=== PATIENT | female | born 1970 | race American Indian/Alaskan Native ===

== ENCOUNTER 2018-06-08 07:11 | Emergency (ER) | payer OTHER ==
[2018-06-08 07:17] VITALS: BMI 27.3
[2018-06-08 07:29] VITALS: TEMP 98.2; O2SAT 98
--- NOTE | 2018-06-08 07:51 | ED PDOC ---
Arrival/HPI - General Chief Complaint: Back Pain Time Seen by Provider: 06/08/18 07:14 Historian: Patient - History of Present Illness Narrative History of Present Illness (Text): 06/08/18 07:46 47F w/ h/o HTN and anxiety presenting with chest pain that began last night. The patient describes the chest pain as starting underneath the left breast, radiating to the mid back. She reports resolution of the pain last night, only for the pain to return this morning with associated dizziness, nausea and lightheadedness. She also reports associated lower abdominal pain she attributes to constipation. The patient denies syncopal episodes, nausea, fevers, chills, taking medications to relieve the pain, shortness of breath, weakness, leg swelling, numbness & tingling or recent travel out of the country. She reports her last menstrual period 1 week ago. PMD: Dr. Armin Rios Time/Duration: Prior to Arrival Symptom Course: Intermittent Quality: Aching Severity Level: 7 Activities at Onset: Rest Context: Home Past Medical History - Provider Review Nursing Documentation Reviewed: Yes - Travel History Have you recently traveled outside [place] w/in the past 3 mons?: No - Cardiac Hx Hypertension: Yes - Musculoskeletal/Rheumatological Hx Falls: No - Genitourinary/Gynecological Other/Comment: miscarriage - Psychiatric Hx Anxiety: Yes Hx Panic Disorder: Yes Hx Substance Use: No - Surgical History Other/Comment: R breast lumpectomy, d&c - Anesthesia Hx Anesthesia: Yes Family/Social History - Physician Review Nursing Documentation Reviewed: Yes Family/Social History: No Known Family HX Smoking Status: Never Smoked Hx Alcohol Use: No Hx Substance Use: No Allergies/Home Meds Allergies/Adverse Reactions: Allergies No Known Allergies Allergy (Verified 06/08/18 07:17) Home Medications: Home Meds Medication Instructions Recorded Confirmed Lisinopril/Hydrochlorothiazide 1 tab PO DAILY 06/08/18 06/08/18 [Lisinopril-Hctz 10-12.5 mg Tab] Sertraline HCl [Zoloft] 50 mg PO DAILY 06/08/18 06/08/18 Review of Systems - Review of Systems Constitutional: absent: Fatigue, Weight Change, Fevers, Night Sweats Respiratory: absent: SOB, Cough, Wheezing Cardiovascular: Chest Pain. absent: Palpitations, Edema, Calf Pain Gastrointestinal: Abdominal Pain, Constipation, Nausea. absent: Stool Changes, Diarrhea, Vomiting Genitourinary Female: absent: Dysuria, Frequency, Hematuria Musculoskeletal: Back Pain. absent: Neck Pain, Joint Swelling Skin: absent: Rash Neurological: Dizziness. absent: Headache Psychiatric: Anxiety Physical Exam Vital Signs Temp Pulse Resp BP Pulse Ox 06/08/18 12:10 98 06/08/18 11:53 71 18 122/78 98 06/08/18 10:56 75 18 116/74 98 06/08/18 09:11 78 18 118/78 98 06/08/18 07:28 98.2 F 82 16 121/81 98 Temperature: Afebrile Blood Pressure: Normal Pulse: Regular Respiratory Rate: Normal Appearance: Positive for: Well-Appearing, Non-Toxic, Comfortable Pain Distress: Moderate Mental Status: Positive for: Alert and Oriented X 3 - Systems Exam Head: Present: Atraumatic, Normocephalic Pupils: Present: PERRL Extroacular Muscles: Present: EOMI Mouth: Present: Moist Mucous Membranes Neck: Present: Normal Range of Motion. No: Meningeal Signs Respiratory/Chest: Present: Clear to Auscultation, Good Air Exchange. No: Respiratory Distress, Wheezes, Retracting Cardiovascular: Present: Regular Rate and Rhythm, Normal S1, S2 Abdomen: Present: Normal Bowel Sounds. No: Tenderness, Distention, Peritoneal Signs Back: Present: Normal Inspection. No: CVA Tenderness, Midline Tenderness Lower Extremity: Present: Normal Inspection. No: Edema, CALF TENDERNESS, NORMAL PULSES Neurological: Present: GCS=15, CN II-XII Intact, Speech Normal Skin: Present: Warm, Dry, Normal Color Psychiatric: Present: Alert, Oriented x 3, Normal Insight, Normal Concentration Medical Decision Making ED Course and Treatment: 06/08/18 07:54 Impression 47F w/ h/o HTN presenting with chest and back pain Differential Diagnoses Include But is Not Limited To: ACS PE Costochondritis PNA Plan -- EKG -- Chest X-ray -- Labs -- Keflex -- Valium -- Toradol -- Urine Culture -- Urinalysis -- POC Urine Progress Notes 06/08/2018 11:55 Chest X-ray IMPRESSION: No active pulmonary disease. Dictator: Hilda Ferrari MD EKG: Ordered, reviewed, and independently interpreted the EKG. Rate : 72 BPM Rhythm : NSR Interpretation : No T-wave abnormalities, no QT wave prolongation. Comparison : No previous EKG for comparison. - Lab Interpretations Lab Results: 06/08/18 06:45 06/08/18 06:45 Lab Results 06/08/18 10:52: Urine Color Yellow, Urine Appearance Clear, Urine pH 8.5, Ur Specific Speer 1.010, Urine Protein Trace H, Urine Glucose (UA) Negative, Urine Ketones Negative, Urine Blood Negative, Urine Nitrate Negative, Urine Bilirubin Negative, Urine Urobilinogen 0.2, Ur Leukocyte Esterase Large H, Urine RBC Negative, Urine WBC 5 - 10, Ur Epithelial Cells 3 - 4, Urine Bacteria Many 06/08/18 06:45: Sodium 140, Potassium 3.7, Chloride 102, Carbon Dioxide 29, Anion Gap 12, BUN 12, Creatinine 0.6 L, Est GFR ( Amer) > 60, Est GFR ( Non-Af Amer) > 60, Random Glucose 108, Calcium 9.6, Magnesium 2.0, Total Bilirubin 0.7, AST 38 H, ALT 27, Alkaline Phosphatase 55, Lactate Dehydrogenase 538, Total Creatine Kinase 163, Troponin I < 0.01, NT-Pro-B Natriuret Pep 48.8, Total Protein 7.8, Albumin 4.2, Globulin 3.6, Albumin/Globulin Ratio 1.2 06/08/18 06:45: D-Dimer, Quantitative 236 06/08/18 06:45: WBC 6.5 D, RBC 4.20, Hgb 11.5 L, Hct 34.4 L, MCV 81.9, MCH 27.4 , MCHC 33.4, RDW 13.2, Plt Count 324, MPV 9.2, Gran % 65.9, Lymph % (Auto) 27.6 , [place] % (Auto) 5.2, Eos % (Auto) 1.1 L, Baso % (Auto) 0.2, Gran # 4.29, Lymph # (Auto) 1.8, [place] # (Auto) 0.3, Eos # (Auto) 0.1, Baso # (Auto) 0.01 I have reviewed the lab results: Yes - RAD Interpretation Radiology Orders: 06/08/18 07:23 CHEST PORTABLE [RAD] Stat - Medication Orders Current Medication Orders: Discontinued Medications Cephalexin Monohydrate (Keflex) 500 mg PO STAT STA PRN Reason: Protocol Stop: 06/08/18 11:21 Last Admin: 06/08/18 11:55 Dose: 500 mg Diazepam (Valium) 2 mg PO ONCE ONE PRN Reason: Protocol Stop: 06/08/18 10:15 Last Admin: 06/08/18 11:00 Dose: 2 mg Ketorolac Tromethamine (Toradol) 30 mg IVP STAT STA Stop: 06/08/18 10:12 Last Admin: 06/08/18 11:00 Dose: 30 mg [facility] Pain Assessment Document 06/08/18 11:00 SZA (Rec: 06/08/18 11:18 [facility] [id number]) Pain Reassessment Is this a pain reassessment? No Sleep Is patient sleeping during reassessment? No Presence of Pain Presence of Pain Yes IVP Administration Document 06/08/18 11:00 SZA (Rec: 06/08/18 11:18 [facility] [id number]) Charges for Administration # of IVP Administrations 1 Re-Assess: GREG Pain Assessment Document 06/08/18 12:00 SZA (Rec: 06/08/18 13:19 [facility] [id number]) Pain Reassessment Is this a pain reassessment? Yes Sleep Is patient sleeping during reassessment? No Presence of Pain Presence of Pain No Pain Scale Used Pain Scale Used Numeric Disposition/Present on Arrival - Present on Arrival Any Indicators Present on Arrival: No History of DVT/PE: No History of Uncontrolled Diabetes: No Urinary Catheter: No History of Decub. Ulcer: No History Surgical Site Infection Following: None - Disposition Have Diagnosis and Disposition been Completed?: Yes Diagnosis: Costochondritis, Anxiety Disposition: HOME/ ROUTINE Disposition Time: 11:55 Patient Plan: Discharge Condition: STABLE Discharge Instructions (ExitCare): Costochondritis, Anxiety, Adult (DC) Prescriptions: Cephalexin [Keflex] 500 mg PO BID 7 Days #14 capsule Referrals: Armin Rios, [employer] [facility] [Primary Care Provider] - Follow up with primary Forms: [employer] (Romanian)
[2018-06-08 08:03] LABS: BASO # 0.01 K/mm3 (0.0-2.0); BASO % 0.2 % (0.0-3.0); EOS # 0.1 (0.0-0.7); EOS % 1.1 % (1.5-5.0); GRAN # 4.29 (1.4-6.5); GRAN % 65.9 % (50.0-68.0); HEMOGLOBIN 11.5 g/dL (12.0-16.0); LYMPH # 1.8 (1.2-3.4); LYMPH % 27.6 % (22.0-35.0); MEAN CELL VOLUME 81.9 fl (80.0-105.0); MEAN CORPUSCULAR HEMOGLOBIN 27.4 pg (25.0-35.0); MEAN CORPUSCULAR HGB CONC 33.4 g/dl (31.0-37.0); MEAN PLATELET VOLUME 9.2 fl (7.0-11.0); MONO # 0.3 (0.1-0.6); MONO % 5.2 % (1.0-6.0); RBC 4.2 10^6/uL (3.5-6.1); RED CELL DISTRIBUTION WIDTH 13.2 % (11.5-14.5); WHITE BLOOD COUNT 6.5 10^3/ul (4.5-11.0)
[2018-06-08 08:16] LABS: ALB/GLOB RATIO 1.2 (1.1-1.8); ALBUMIN 4.2 g/dL (3.0-4.8); ALT/SGPT 27 U/L (7-56); AST/SGOT 38 U/L (14-36); BLOOD UREA NITROGEN 12 mg/dL (7-21); CALCIUM 9.6 mg/dL (8.4-10.5); GFR AFRICAN-AMERICAN > 60; GFR NON-AFRICAN AMERICAN > 60
[2018-06-08 08:26] LABS: B-TYPE NATRIURETIC PEPTIDE 48.8 pg/mL (0-450); TROPONIN I < 0.01 ng/mL
[2018-06-08 09:15] VITALS: RESP 18
[2018-06-08 11:03] LABS: PH,URINE 8.5 (4.7-8.0); URINE APPEARANCE CLEAR (CLEAR); URINE BILIRUBIN NEGATIVE (NEGATIVE); URINE BLOOD NEGATIVE (NEGATIVE); URINE COLOR YELLOW (YELLOW); URINE GLUCOSE (UA) NEGATIVE (NEGATIVE); URINE LEUKOCYTE ESTERASE LARGE Leu/uL (NEGATIVE); URINE PROTEIN TRACE mg/dL (<30 mg/dL); URINE UROBILINOGEN 0.2 E.U./dL (<1 E.U./dL)
[2018-06-08 11:33] LABS: URINE BACTERIA MANY (NEG); URINE RBC NEGATIVE /hpf (0-2)
[2018-06-08 11:53] VITALS: BP 122/78; PULSE 71
--- NOTE | 2018-06-08 11:56 | RAD ---
Date of service: 06/08/2018 HISTORY: Chest pain COMPARISON: 12/05/2015. FINDINGS: LUNGS: The lungs are well inflated and clear. PLEURA: No significant pleural effusion identified, no pneumothorax apparent. CARDIOVASCULAR: Normal. OSSEOUS STRUCTURES: No significant abnormalities. VISUALIZED UPPER ABDOMEN: Normal. OTHER FINDINGS: None. IMPRESSION: No active pulmonary disease.
--- NOTE | 2018-06-08 21:28 | CARD ---
APPROVED REPORT Date of service: 06/08/2018 EKG Measurement Heart [id number] <Conclusion> Normal sinus rhythm Normal ECG
== END 2018-06-08 12:10 | disposition home or self-care (01) ==
LOC: ED 07:11
DX: M94.0 Chondrocostal junction syndrome [Tietze] (principal); F41.9 Anxiety disorder, unspecified; I10 Essential (primary) hypertension
CPT/HCPCS: 71045; 80053; 81001; 82550; 83615; 83735; 83880; 84484; 85025; 85378; 87086; 93005; 96374; 99284; J1885